=== PATIENT | male | born 1990 | race Caucasian/White ===

== ENCOUNTER 2019-06-26 09:24 | Emergency (ER) | payer SELFPAY ==
[2019-06-26] MEDS ORDERED: KETOROLAC TROMETHAMINE INJ/PF 30 MG/1 ML SDV IV ONE (09:56)
[2019-06-26] MEDS ORDERED: ONDANSETRON HCL INJ/PF 4 MG/2 ML SDV IV ONE (09:56)
[2019-06-26] MEDS ORDERED: NORMAL SALINE 1000 ML 1,000 ML IV ONE (09:57)
--- NOTE | 2019-06-26 09:59 | ER Document Report ---
ED Medical Screen (RME) - General Chief Complaint: Flank Pain Stated Complaint: RIGHT FLANK PAIN,PAINFUL URINATION Time Seen by Provider: 06/26/19 09:53 Notes: Patient is a 29-year-old male who presents to the emergency department with a chief complaint of flank and abdominal pain. Patient reports on [place] '[place] he developed a right lower quadrant aching sensation to his abdomen. Patient reports that this actually got better. Patient reports last night he started to have right flank pain. Patient reports at that time he was also having difficulty emptying his bladder. Patient denies history of kidney stones. Patient denies nausea, vomiting or diarrhea. Patient reports a temp of 102 prior to arrival to the emergency department but did not take any Tylenol or ibuprofen. TRAVEL OUTSIDE OF THE [place] IN LAST 30 DAYS: No - Related Data Allergies/Adverse Reactions: No Known Allergies Allergy (Verified 06/26/19 09:51) Past Medical History - Social History Frequency of alcohol use: Social Drug Abuse: None - Immunizations Hx Diphtheria, Pertussis, Tetanus Vaccination: Yes - > 5 years Physical Exam - Vital signs Vitals: Temp Pulse Resp BP Pulse Ox 99.1 F 117 H 18 143/75 H 100 06/26/19 09:35 06/26/19 09:35 06/26/19 09:35 06/26/19 09:35 06/26/19 09:35 - Abdominal Inspection: Normal Distension: No distension Bowel sounds: Normal - Patient has right mid to lower abdominal tenderness with palpation. Course - Re-evaluation Re-evalutation: 06/26/19 09:59 Patient states that his pain is not that bad right now but patient does appear uncomfortable in the wheelchair. Will initiate IV, IV fluids and basic labs. Patient is tachycardic here in triage with a heart rate of 117. Patient will require a thorough abdominal exam in the back. I have greeted and performed a rapid initial assessment of this patient. A comprehensive ED assessment and evaluation of the patient, analysis of test results and completion of the medical decision making process will be conducted by additional ED providers. - Vital Signs Vital signs: Temp Pulse Resp BP Pulse Ox 99.1 F 117 H 18 143/75 H 100 06/26/19 09:35 06/26/19 09:35 06/26/19 09:35 06/26/19 09:35 06/26/19 09:35
--- NOTE | 2019-06-26 10:27 | ER Document Report ---
ED General - General Chief Complaint: Flank Pain Stated Complaint: RIGHT FLANK PAIN,PAINFUL URINATION Time Seen by Provider: 06/26/19 09:53 TRAVEL OUTSIDE OF THE [place] IN LAST 30 DAYS: No - HPI Notes: 29m w/o prior abd surgical hx or significnat med hx including any prior h/o kidney stones presents ambulatory to ED and says ho was in [facility] until 3 d/a on [facility] he noticed gradual onset of ache in RLQ. this seemed to have resolved that evening, but in the last few days he's noted both overall generalized cramping and aches lasting < an hour but has occurred few times in this time. he ultimately presents now amb for onset of R flank pain + prior to arriving T=102 & incomplete bladder emptying. he denies that the RLQ or any of the anterior abd pain cramping is now radiating to the flank, rather the flank pain seems different, duller. denies focal neuro/sensory deficits. he'd reported in triage some difficulty in fully emptying his bladder & dizziness. to me he says it seems more that he is just peeing less frequently and in less amt than usual and felt a little lightheaded today upon standing, but no vertigo vision change armstrong or (near)syncope. he does again deny though any dysuria/hematuria, interruption in stream and now confirms no there's no real urge to urinate after completion. (-) n/v/d. does say he has had subj fever on and off for 2 days but took at home before coming and was 102. no sick contacts. is sexually active no joint pain penile lesions/discharge, or groin sx, or new and/or sx partners. no other sick contacts. no diarrhea. pt doesn't think sx are related to eating at all. hasn't tried any meds at home. nothing seems to help sx when they onset, but then does say defecating made him feel better other day. no blood in stool or straining or change in bowel patterns he's noticed. denies any etoh or drug use hx or new otc substances. - Related Data Allergies/Adverse Reactions: No Known Allergies Allergy (Verified 06/26/19 09:51) Past Medical History - General Information source: Patient - Social History Smoking Status: Current Every Day Smoker Frequency of alcohol use: Social Drug Abuse: None Family History: Reviewed & Not Pertinent Patient has suicidal ideation: No Patient has homicidal ideation: No - Immunizations Hx Diphtheria, Pertussis, Tetanus Vaccination: Yes - > 5 years Review of Systems - Review of Systems Constitutional: See HPI EENT: No symptoms reported Cardiovascular: No symptoms reported, Lightheaded. denies: Chest pain, Palpitations, Heart racing, Orthopnea, Dyspnea, Syncope, Edema, Paroxysmal Nocturnal Dysp Respiratory: No symptoms reported Gastrointestinal: See HPI, Abdominal pain. denies: Abdomen distended, Diarrhea, Nausea, Vomiting, Constipation, Blood streaked bowels, Black stools, Rectal bleeding Genitourinary: See HPI Male Genitourinary: No symptoms reported Musculoskeletal: No symptoms reported Skin: No symptoms reported Hematologic/Lymphatic: No symptoms reported Neurological/Psychological: No symptoms reported Physical Exam - Vital signs Vitals: Temp Pulse Resp BP Pulse Ox 99.1 F 117 H 18 143/75 H 100 06/26/19 09:35 06/26/19 09:35 06/26/19 09:35 06/26/19 09:35 06/26/19 09:35 Interpretation: Normal Notes: at time of my interview exam, VS had normalized and at patient's baseline per last visit y/a. - General General appearance: Appears well, Alert, Other - nontoxic appearing afebrile In distress: None - HEENT Head: Normocephalic, Atraumatic Eyes: Normal Pupils: PERRL - Respiratory Respiratory status: No respiratory distress Chest status: Nontender Breath sounds: Normal Chest palpation: Normal - Cardiovascular Rhythm: Regular Heart sounds: Normal auscultation Murmur: No - Abdominal Inspection: Normal Distension: No distension Bowel sounds: Normal Tenderness: Tender - reports mild ttp diffusely through abd w/o any peritoneal findings or localized findings. no bladder ttp/distention. no CVA ttp, no overlying skin changes or deformity over CVA or abd or back on inspection.. No: McBurney's point, King's sign, Guarding, Rebound Organomegaly: No organomegaly - Back Back: Normal, Nontender. No: Deformity/step-off, CVA tenderness, Vertebra tenderness, Scoliosis - Extremities General upper extremity: Normal inspection, Nontender, Normal color, Normal ROM, Normal temperature General lower extremity: Normal inspection, Nontender, Normal color, Normal ROM, Normal temperature, Normal weight bearing. No: Elvi's sign - Neurological Neuro grossly intact: Yes Cognition: Normal Orientation: AAOx4 [place] Coma Scale Eye Opening: Spontaneous [place] Coma Scale Verbal: Oriented Elizabet Coma Scale Motor: Obeys Commands [place] Coma Scale Total: 15 Speech: Normal Motor strength normal: LUE, RUE, LLE, RLE Sensory: Normal - Psychological Associated symptoms: Normal affect, Normal mood - Skin Skin Temperature: Warm Skin Moisture: Dry Skin Color: Normal Course - Re-evaluation Re-evalutation: no fevers or unstable vs through remainder of ED w/u & obs. reviewed labs and CT a/p w/ iv contrast and GB imaging which were wnl including his ua. on exam he appeared very mildly dehydrated (dry mucous membranes, gave 2l ivf but not positive on orthostatics and labs again wnl. he and i discussed that i feel reassured now that we've visualized a healthy appearing apendix and GB and kidneys, but one thing that might explain his presentation and is seen on his CT is ++bowel gas w/ portions of the colon full of feculent material. therefore he may be either at the start of end of a viral GE given 3d intermittent cramping but now is experiencing more constipation and crampiness w/ moving his bowels. gave Rx MiraLAX qd and prn fleets enema we discussed though immediate reutrn for red flags like cont fever >100.4 return of persistent abd pain, vomiting or inability to have bm. - Vital Signs Vital signs: Temp Pulse Resp BP Pulse Ox 99.7 F 84 16 106/67 97 06/26/19 16:07 06/26/19 16:07 06/26/19 16:07 06/26/19 16:07 06/26/19 16:07 - Laboratory Result Diagrams: 06/26/19 10:08 06/26/19 10:08 Laboratory results interpreted by me: 06/26/19 06/26/19 06/26/19 09:58 10:08 10:08 Seg Neuts % (Manual) 88 H Band Neutrophils % 1 L Lymphocytes % (Manual) 2 L Abs Lymphs (Manual) 0.2 L Potassium 3.4 L Calcium 10.4 H Total Bilirubin 1.7 H Total Protein 8.7 H Albumin 5.2 H Urine Glucose (UA) 50 H - Diagnostic Test Radiology reviewed: Image reviewed, Reports reviewed Discharge - Discharge Clinical Impression: Constipation by delayed colonic transit Abdominal pain Qualifiers: Abdominal location: generalized Qualified Code(s): R10.84 - Generalized abdominal pain Condition: Fair Disposition: HOME, SELF-CARE Additional Instructions: Today in the emergency department you look very mildly dehydrated therefore we g ave you fluids. Your electrolytes look fine your kidneys look good all your labs look within normal limits including your urinalysis. Your CT scan with IV contrast showed the appendix fully and this looks within normal limits. Your gallbladder on CT and ultrasound looks within normal limits without any stones. On your CT when I review it thoroughly there is a lot of bowel gas and portions of the colon which are still filled with feculent material therefore this may be intermittent cramping from constipation and moving your bowels. Therefore I will prescribe you MiraLAX once a day to take with liquid it within 20 minutes and you can increase up to 2-3 or 4 times a day to make your stools soft and regular. I will also write a prescription for a fleets enema which is [id number] if you feel like you are having trouble passing stool from below near your rectum. Follow the manager urgent care's instructions for administration of this. Otherwise stay hydrated and make sure you are docu menting any fevers. Watch for any vomiting or inability to hold down medications or oral intake or return of severe pain and fevers and vomiting. Please ensure that you stay hydrated and you keep urinating clear yellow urine regularly. Prescriptions: Acetaminophen [Non-Aspirin] 650 mg PO Q6HP PRN #18 tablet PRN Reason: Mineral Oil [Fleet Mineral Oil Enema 133 Ml] 133 ml KS DAILY #3 enema Polyethylene Glycol 3350 [Miralax] 119 gm PO DAILY PRN #14 powder PRN Reason: For Constipation
[2019-06-26 10:34] LABS: HEMATOCRIT 45.9 % (37.9-51.0); HEMOGLOBIN 16.5 g/dL (13.5-17.0); MEAN CORPUSCULAR HEMOGLOBIN 32.1 pg (27.0-33.4); MEAN CORPUSCULAR HGB CONC 35.9 g/dL (32.0-36.0); MEAN CORPUSCULAR VOLUME 90 fl (80-97); PLATELET COUNT 216 10^3/uL (150-450); RED BLOOD COUNT 5.12 10^6/uL (4.35-5.55); RED CELL DISTRIBUTION WIDTH 12.5 % (11.5-14.0); WHITE BLOOD COUNT 7.6 10^3/uL (4.0-10.5)
[2019-06-26 10:35] LABS: APPEARANCE,URINE CLEAR; BILIRUBIN,URINE NEGATIVE (NEGATIVE); COLOR,URINE STRAW; GLUCOSE, URINE 50 mg/dL (NEGATIVE); KETONES,URINE NEGATIVE (NEGATIVE); LEUKOCYTE ESTERASE,URINE NEGATIVE (NEGATIVE); NITRITE,URINE NEGATIVE (NEGATIVE); PROTEIN,URINE NEGATIVE (NEGATIVE); URINE SPECIFIC GRAVITY 1.006; UROBILINOGEN,URINE NEGATIVE mg/dL (<2.0)
[2019-06-26 10:54] LABS: ALBUMIN 5.2 g/dL (3.5-5.0); ALKALINE PHOSPHATASE 61 U/L (38-126); ANION GAP 16 (5-19); ASPARTATE AMINO TRANSFERASE 24 U/L (17-59); BILIRUBIN,DIRECT 0.1 mg/dL (0.0-0.4); BILIRUBIN,TOTAL 1.7 mg/dL (0.2-1.3); BLOOD UREA NITROGEN 13 mg/dL (7-20); CALCIUM 10.4 mg/dL (8.4-10.2); CARBON DIOXIDE 23 mmol/L (22-30); CHLORIDE 100 mmol/L (98-107); GLUCOSE 98 mg/dL (75-110); POTASSIUM 3.4 mmol/L (3.6-5.0); TOTAL PROTEIN 8.7 g/dL (6.3-8.2)
[2019-06-26 11:12] LABS: ABSOLUTE LYMPHOCYTES# (MANUAL) 0.2 10^3/uL (0.5-4.7); ABSOLUTE MONOCYTES # (MANUAL) 0.5 10^3/uL (0.1-1.4); BAND NEUTROPHILS % (MANUAL) 1 % (3-5); BASOPHILS % (MANUAL) 1 % (0-2); EOSINOPHILS % (MANUAL) 0 % (0-6); LYMPHOCYTES % (MANUAL) 2 % (13-45); MONOCYTES % (MANUAL) 7 % (3-13); PLATELET COMMENT ADEQUATE; RBC MORPHOLOGY COMMENT NORMO-CYTIC/CHROMIC; SEGMENTED NEUTROPHILS % (MAN) 88 % (42-78); TOTAL CELLS COUNTED 100
[2019-06-26] MEDS ORDERED: ONDANSETRON HCL INJ/PF 4 MG/2 ML SDV IV PRN (11:45)
[2019-06-26] MEDS ORDERED: RINGERS SOLUTION,LACTATED 1,000 ML IV ONE (11:45)
[2019-06-26] MEDS ORDERED: HYDROMORPHONE HCL INJ/PF 2 MG/ML AMPULE IV PRN (11:46)
--- NOTE | 2019-06-26 12:28 | RADIOLOGY REPORT (SQ) ---
EXAM DESCRIPTION: CT ABD/PELVIS WITH IV ONLY COMPLETED DATE/TIME: 06/26/2019 12:11 pm REASON FOR STUDY: rlq w/ rebound pain fever COMPARISON: None. TECHNIQUE: CT scan of the abdomen and pelvis performed using helical scanning technique with dynamic intravenous contrast injection. No oral contrast. Images reviewed with lung, soft tissue, and bone windows. Reconstructed coronal and sagittal MPR images reviewed. Delayed images for evaluation of the urinary system also acquired. All images stored on PACS. All CT scanners at this facility use dose modulation, iterative reconstruction, and/or weight based d osing when appropriate to reduce radiation dose to as low as reasonably achievable (ALARA). [facility]: Dose Right [facility]: CareDose [facility]: Dose Right [facility]: Teradose 4D [facility]: DealCloud CONTRAST TYPE AND DOSE: contrast/concentration: Isovue 350.00 mg/ml; Total Contrast Delivered: 77.0 ml; Total Saline Delivered: 70.0 ml RENAL FUNCTION: None required. The patient is less than 50 years old. RADIATION DOSE: CT Rad equipment meets quality standard of care and radiation dose reduction techniq ues were employed. CTDIvol: 4.0 - 4.0 mGy. DLP: 456 mGy-cm.. LIMITATIONS: None. FINDINGS: LOWER CHEST: No significant findings. No nodules or infiltrates. LIVER: Normal size. No masses. No dilated ducts. SPLEEN: Normal size. No focal lesions. PANCREAS: No masses. No significant calcifications. No adjacent inflammation or peripancreatic fluid collections. Pancreatic duct not dilated. GALLBLADDER: No identified stones by CT criteria. No inflammatory changes to suggest cholecystitis. ADRENAL GLANDS: No significant masses or asymmetry. RIGHT KIDNEY AND URETER: No solid masses. No significant calcifications. No hydronephrosis or hyd roureter. LEFT KIDNEY AND URETER: No solid masses. No significant calcifications. No hydronephrosis or hydr oureter. AORTA AND VESSELS: No aneurysm. No dissection. Renal arteries, SMA, celiac without stenosis. RETROPERITONEUM: No retroperitoneal adenopathy, hemorrhage or masses. BOWEL AND PERITONEAL CAVITY: No masses or inflammatory changes. No free fluid or peritoneal masses. APPENDIX: Normal (series 2, image 58). PELVIS: No mass. No free fluid. Normal bladder. ABDOMINAL WALL: No masses. No hernias. BONES: There is abnormal, flattened contour of the left femoral head and a shallow appearing acetabul um. OTHER: No other significant finding. IMPRESSION: 1. No CT findings of the abdomen or pelvis to explain right lower quadrant abdominal sal n. Normal appendix. 2. 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 TECHNICAL DOCUMENTATION: JOB ID: [id number] Quality ID # [id number]: Final reports with documentation of one or more dose reduction techniques (e.g., Au tomated exposure control, adjustment of the mA and/or kV according to patient size, use of iterative reconstruction technique) 2010 [employer]- All Rights Reserved Reading location - IP/workstation name: [email or web address]
--- NOTE | 2019-06-26 14:44 | RADIOLOGY REPORT (SQ) ---
EXAM DESCRIPTION: U/S ABDOMEN LIMITED W/O DOP COMPLETED DATE/TIME: 06/26/2019 2:27 pm REASON FOR STUDY: R abd pain fever tachycardia COMPARISON: CT abdomen and pelvis examination dated 06/26/2019. TECHNIQUE: Dynamic and static grayscale images acquired of the abdomen and recorded on PACS. Additio nal selected color Doppler and spectral images recorded. LIMITATIONS: None. FINDINGS: PANCREAS: The pancreatic head is of normal echogenicity. The body and tail are obscured by overlying bowel gas. LIVER: The liver measures 15.4 cm in length, normal size. No masses. Echotexture normal. LIVER VASCULATURE: Normal directional flow of the main portal vein and hepatic veins. GALLBLADDER: No stones. The gallbladder wall measures 2.0 mm, normal wall thickness. No pericholecys tic fluid. ULTRASOUND-DETECTED QUIJANO'S SIGN: Negative. INTRAHEPATIC DUCTS AND COMMON DUCT: CBD measures 2.0 mm in diameter, normal. The intrahepatic ducts normal caliber. No filling defects. INFERIOR VENA CAVA: Normal flow. AORTA: No aneurysm. RIGHT KIDNEY: The right kidney measures 13.1 cm in length, normal size. Normal echogenicity. No domi id or suspicious masses. No hydronephrosis. No calcifications. PERITONEAL AND RIGHT PLEURAL SPACE: No ascites or effusions. OTHER: No other significant findings. IMPRESSION: 1. Limited visualization of the pancreas due to overlying bowel gas. 2. Examination is otherwise unremarkable sonographically. TECHNICAL DOCUMENTATION: JOB ID: [id number] [employer]- All Rights Reserved Reading location - IP/workstation name: [email or web address]
[2019-06-26 16:10] VITALS: BP 106/67
== END 2019-06-26 16:04 | disposition home or self-care (01) ==
LOC: ER 09:24
DX: K59.01 Slow transit constipation (principal); R10.84 Generalized abdominal pain; R10.817 Generalized abdominal tenderness; R33.9 Retention of urine, unspecified; R42 Dizziness and giddiness; F17.200 Nicotine dependence, unspecified, uncomplicated
CPT/HCPCS: 99283; 96361; 96374; 96375; 36415; 83690; 85025; 80053; 81001; 76705; 74177; J1885; J2405; J7030; J7120